=== PATIENT | male | born 1990 | race Caucasian/White ===

== ENCOUNTER 2022-02-08 08:39 | Emergency (ER) | payer BC ==
[2022-02-08 09:29] LABS: RED BLOOD COUNT 4.93 M/UL (4.20-5.50); WHITE BLOOD COUNT 16.8 K/UL (4.5-11.0)
[2022-02-08 09:57] LABS: BUN/CREATININE RATIO 16 (0-10)
[2022-02-08] MEDS ORDERED: AMOX TR-K CLV1 EAC4 PO (11:51)
[2022-02-08] MEDS ORDERED: ZITHROMAX250 MG PO (11:51)
== END 2022-02-08 12:35 | disposition home or self-care (01) ==
LOC: ER1 08:39
PROVIDERS: Physician Assistant
DX: J18.9 Pneumonia, unspecified organism (principal); E11.9 Type 2 diabetes mellitus without complications; I10 Essential (primary) hypertension; D64.9 Anemia, unspecified; Z90.89 Acquired absence of other organs; Z90.49 Acquired absence of other specified parts of digestive tract; Z98.84 Bariatric surgery status
CPT/HCPCS: 71045; 71275; 80053; 82550; 82553; 82607; 83605; 84439; 84443; 84484; 85025; 85379; 93005; 99285; J7030; Q9967

== ENCOUNTER 2022-04-04 10:50 | Emergency (ER) | payer BC ==
[~2022-04-04 10:50] MED LIST: AMOX TR-K CLV1 EAC4 PO; ZITHROMAX250 MG PO
[2022-04-04 11:25] LABS: HEMOGLOBIN 15.3 gm/dl (14.0-17.5); RED BLOOD COUNT 5.01 M/UL (4.20-5.50); WHITE BLOOD COUNT 6.4 K/UL (4.5-11.0)
[2022-04-04 11:46] LABS: BUN/CREATININE RATIO 15 (0-10)
== END 2022-04-04 14:25 | disposition home or self-care (01) ==
LOC: ER1 10:50
DX: J02.9 Acute pharyngitis, unspecified (principal); R07.89 Other chest pain; Z90.89 Acquired absence of other organs; Z90.49 Acquired absence of other specified parts of digestive tract; Z20.822 Contact with and (suspected) exposure to COVID-19
CPT/HCPCS: 0240U; 71045; 80053; 82550; 82553; 84484; 85025; 87081; 87880; 93005; 94664; 94760; 96374; 99283; J1100